=== PATIENT | female | born 1945 | race Caucasian/White ===

== ENCOUNTER 2023-02-26 09:52 | Outpatient (OUT) | payer MEDICARE, SELFPAY ==
--- NOTE | 2023-02-26 10:00 | XR_ITS ---
The [address] [address] Patient Name: NARGIS JACK MRN: [id number] date: 1945 Sex: F Assigned Patient Location: [facility] Current Patient Location: [facility] Accession/Order Number: [id number] Exam Date: 02/26/2023 09:59 Report Date: 02/26/2023 16:13 At the request of: HA DUVAL Procedure: XR foot RT min 3V PROCEDURE: XR foot RT min 3V HISTORY: RIGHT FOOT PAIN follow-up fractures COMPARISON: XR foot right 12/24/2022 FINDINGS: BONES:Complete resolution of sclerotic bands across the neck of third metatarsal consistent with complete bone healing. No abnormal alignment. Generalized osteopenia of the foot. SOFT TISSUES:No visible soft tissue swelling. EFFUSION:None visible. OTHER: Negative. IMPRESSION: 1. Complete healing of previously seen third metatarsal fracture. Electronically authenticated by: DANIELA BURGER Date: 02/26/2023 16:13
== END 2023-02-26 09:53 ==
LOC: RAD 09:53
PROVIDERS: PCP Podiatrist Foot & Ankle Surgery; Visit Provider Podiatrist Foot & Ankle Surgery
DX: S92.334D Nondisplaced fracture of third metatarsal bone, right foot, subsequent encounter for fracture with routine healing (principal); X58.XXXD Exposure to other specified factors, subsequent encounter
CPT/HCPCS: 73630